=== PATIENT | male | born 1985 | race Caucasian/White ===

== ENCOUNTER → 2021-11-10 10:39 | Outpatient (CLI) | payer OTHER, SELFPAY ==
[2021-11-10 20:34] LABS: Add Manual Diff / Slide Review NO; Basophils Absolute Auto 0 /uL (0-100); Eosinophils Absolute Auto 100 /uL (0-450); Eosinophils Percent Auto 3.3 % (2-4); Hematocrit 40.3 % (41-53); Hemoglobin 13.6 g/dL (13.5-17.5); Lymphocytes Absolute Auto 1800 /uL (1100-4500); Lymphocytes Percent Auto 40.2 % (25-40); Mean Corpuscular HGB Conc 33.6 % (30-36); Mean Corpuscular Volume 92.2 fL (80-100); Monocytes Absolute Auto 300 /uL (0-900); Monocytes Percent Auto 7.9 % (3-14); Neutrophils Absolute Auto 2100 /uL (1500-7000); Neutrophils Percent Auto 47.6 % (50-75); Platelet Count 245 X10^3/uL (150-400); Red Blood Cell Count 4.37 X10^6/uL (4.5-5.9); Red Cell Distribution Width 13.8 % (11.6-14.8); White Blood Cell Count 4.4 X10^3/uL (4.5-11.0)
[2021-11-10 20:50] LABS: Alanine Aminotransferase 26 IU/L (<50); Albumin Globulin Ratio 2.1 (1.0-2.8); Alkaline Phosphatase 39 U/L (38-126); Aspartate Aminotransferase 31 IU/L (17-59); BUN Creatinine Ratio 16.7 (6-22); Blood Urea Nitrogen 11 mg/dL (9-20); Calcium 9.4 mg/dL (8.4-10.2); Carbon Dioxide 28 mmol/L (22-32); Chloride 101 mmol/L (98-107); Cholesterol 167 mg/dL (140-199); Estimated Glomerular Filt Rate > 60 mL/min (>60); Globulin 2.4 g/dL (1.7-4.1); Glucose 90 mg/dL (70-100); HDL Cholesterol 77 mg/dL (40-60); HEMOLYSIS < 15 (0-50); LDL Cholesterol Calculated 84 mg/dL (<100); Sodium 140 mmol/L (137-145); Total Protein 7.4 g/dL (6.3-8.2); Triglycerides 29 mg/dL (35-150)
[2021-11-12 09:57] LABS: Interpretation Negative (Negative)
== END ==
PROVIDERS: PCP Physician Assistant; Visit Provider Physician Assistant
DX: N46.9 Male infertility, unspecified (principal); R10.9 Unspecified abdominal pain
CPT/HCPCS: 80053; 80061; 83013; 85025

== ENCOUNTER → 2022-02-12 07:01 | Outpatient (CLI) | payer OTHER, SELFPAY ==
[2022-02-12 19:05] LABS: COVID19 - ORCAS (NP or Nasal) Negative (Negative)
== END ==
PROVIDERS: PCP Physician Assistant; Visit Provider Family Medicine
DX: Z20.822 Contact with and (suspected) exposure to COVID-19 (principal); Z01.812 Encounter for preprocedural laboratory examination
CPT/HCPCS: U0003

== ENCOUNTER 2022-02-15 11:24 | Day surgery (SDC) | payer OTHER, SELFPAY ==
--- NOTE | 2022-02-15 | PATH_ITS ---
[facility] Accession Number: [id number] . 01 Material submitted: . PART A: colon - RIGHT COLON BIOPSIES PART B: colon - LEFT COLON BIOPSIES . 01 Diagnosis: A-B. Right Colon, Left Colon, Biopsies: Colonic mucosa with no diagnostic abnormality. Negative for active, chronic, and microscopic colitis. Negative for dysplasia and malignancy. . MRV 02/18/2022 1107 Local . 01 Electronically signed: . Casie Ortiz MD, Pathologist NPI- [id number] . 01 Gross description: . Part A: RIGHT COLON BIOPSIES: Received in formalin are multiple fragment(s) of fernandes, soft tissue measuring 0.8 x 0.5 x 0.1 cm in aggregate submitted entirely in 1 cassette(s) Part B: LEFT COLON BIOPSIES: Received in formalin are multiple fragment(s) of fernandes, soft tissue measuring 1.2 x 0.3 x 0.1 cm in aggregate submitted entirely in 1 cassette(s) /CPE 02/17/2022 1025 Local . 01 Pathologist provided ICD-10: R19.4 . 01 CPT . 075233, 173082 Specimen Comment: A courtesy copy of this report has been sent to [phone] Performed at: [address] [facility] [address] [place] [address] [address], [place], [place] [id number] MD Alphonso Vargas MD Phone: [phone]
[2022-02-15 11:49] VITALS: BMI 20.7
[2022-02-15] MEDS: LACTATED RINGERS 1,000 ML 84 ML IV (11:59)
[2022-02-15 12:02] VITALS: BP 136/83; PULSE 62; RESP 18; TEMP 36.5; O2SAT 97
--- NOTE | 2022-02-15 12:15 | P.HP_ITS ---
History of Present Illness History of Present Illness Date Patient Seen: 02/15/22 Time Patient Seen: 12:16 Chief complaint: Colonoscopy Narrative: Patient is a pleasant 36-year-old male who presented for colonoscopy. He was last evaluated on 12/22/2021. He an episode where he was hospitalized in July of 2021 for nausea, vomiting, and diarrhea. He did have a CT scan at that time which was abnormal. This did show colitis. Per reports he also had and decreas ed fecal calprotectin, though we do not have that available for review. His dad had a history of colitis. He has not had previous colonoscopy. His symptoms of nausea vomiting diarrhea have resolved. Patient History Family & Social History Social History: household members spouse Tobacco & Substance use: Smoking Status Former smoker alcohol intake current alcohol intake frequency 0-2 drinks per day Substance Use Type does not use Meds Home Medications and Allergies Home Medications Medication Instructions Recorded Confirmed Type Sheridan Aid Supplement 1 tab PO DAILY 02/15/22 02/15/22 History levocetirizine 5 mg tablet 5 mg PO DAILY 02/15/22 02/15/22 History multivitamin 1 tab PO DAILY 02/15/22 02/15/22 History omega 4-xzx-bcs-fish oil 300 1 cap PO DAILY 02/15/22 02/15/22 History mg-1,000 mg capsule (Fish Oil) Allergies Allergy/AdvReac Type Severity Reaction Status Date / Time No Known Drug Allergies Allergy Verified 02/15/22 11:45 Review of Systems Review of Systems ROS: Yes All systems reviewed with the patient and are negative except as otherwise documented Exam Vital Signs (past 8 hours): - 02/15/22 12:02 Temperature 97.7 F Pulse Rate 62 Respiratory Rate 18 Blood Pressure 136/83 Pulse Oximetry 97 Oxygen Delivery Method Room Air Oxygen Delivery Method Room Air Const General: cooperative, healthy appearing, comfortable, well developed and No acute distress HENMT Head: atraumatic Resp Effort & Inspection: normal respiratory effort, able to speak in complete sentences and no audible wheezes Auscultation: clear to auscultation bilaterally Cardio Rate: regular rate Rhythm: regular rhythm GI Palpation: soft Assessment & Plan Assessment & Plan narrative: 1. Abnormal CT scan 2. Nausea, vomiting, diarrhea Colonoscopy today, further recommendations to follow Time Spent With Patient Critical Care time: I spent a total of [] minutes of critical care time on this patient's care today; this time is exclusive of procedural time.
--- NOTE | 2022-02-15 12:57 | PM.OP.COLON ---
Operative Date/Time/Diagnoses Date of procedure: 02/15/22 Time of procedure: 12:40 Procedure Notes Procedure in detail: Surgeon: Abril Stoner DO Procedure: Colonoscopy with biopsy Preoperative diagnosis: 1. Abnormal CT scan - colitis 2. Diarrhea Postoperative diagnosis: 1. Normal-appearing colonoscopy to the terminal ileum left and right were obtained 2. Grade 1 internal hemorrhoids Medications: Monitored anesthesia care Preanesthesia Assessment An H and P was performed/updated and the Px?s ASA class is 1. The procedure was discussed in detail with the patient. The potential risks and complications including infection, bleeding, missed lesions, perforation, need for surgery in case of perforation, prolonged hospital stay, and were explained. A brief question and answer period was allotted and once all questions were answered, informed consent was obtained. The patient was brought back to the procedure room and placed on standard monitoring. The patient?s vital signs were monitored continuously throughout the entire procedure. Prior to starting, a timeout was performed to confirm the patient?s identity, allergies, medications, and procedure. Procedure in detail The patient was placed in left lateral decubitus position and once adequate sedation was obtained a PHOENIX was performed. The digital rectal examination did not reveal any palpable lesions. The tip of the colonoscope was placed in the anal canal and advanced without difficulty all the way to the cecum which was identified by the appendiceal orifice and the ileocecal valve. Terminal ileum intubation was achieved. TI was unremarkable colon mucosa appeared within normal limits. Biopsies were taken from the left and right colon to rule out microscopic colitis versus underlying quiescent colitis. Grade 1 internal hemorrhoids were noted on retroflexion. Careful examination of all márquez of the colon was performed with irrigation of any residual stool. The patient tolerated the procedure well and will be brought back to the recovery area to be discharged once criteria are met. The prep was judged to be good/excellent and adequate to identify polyps less than 5 mm. The withdrawal time was 10min. Complications There were no complications and estimated blood loss was minimal. Recommendations: Resume previous diet Continue outPx medications Follow up pathology results Repeat colonoscopy for screening at age 46 Office follow up if persistent symptoms An emergency contact number was given to the patient for any complications related to the procedure
[2022-02-15 13:01] VITALS: BP 101/65; PULSE 61; RESP 18; TEMP 36.4; O2SAT 97
[2022-02-15 13:06] VITALS: BP 113/76; PULSE 58; RESP 12; O2SAT 100
[2022-02-15 13:11] VITALS: BP 121/83; PULSE 59; RESP 15; TEMP 36.6; O2SAT 100
[2022-02-15 13:28] VITALS: BP 122/72; PULSE 64; RESP 12; TEMP 36.8; O2SAT 98
== END 2022-02-15 13:32 | disposition home or self-care (01) ==
PROVIDERS: PCP Physician Assistant; Referring Provider Student in an Organized Health Care Education/Training Program; Visit Provider Student in an Organized Health Care Education/Training Program
PROC: 0DJD8ZZ Inspection of Lower Intestinal Tract, Via Natural or Artificial Opening Endoscopic (ICD-10-PCS; CPT 45378; principal; 2022-02-15 13:00)
DX: R19.7 Diarrhea, unspecified (principal); R93.3 Abnormal findings on diagnostic imaging of other parts of digestive tract; K64.0 First degree hemorrhoids
CPT/HCPCS: 45380; J2704

== ENCOUNTER → 2023-03-31 13:03 | Outpatient (CLI) | payer OTHER, SELFPAY ==
[2023-03-31 19:03] LABS: Add Manual Diff / Slide Review NO; Basophils Absolute Auto 0 /uL (0-100); Basophils Percent Auto 0.5 % (0-2); Eosinophils Absolute Auto 0 /uL (0-450); Eosinophils Percent Auto 0.7 % (2-4); Hematocrit 39.1 % (41-53); Hemoglobin 13.2 g/dL (13.5-17.5); Lymphocytes Absolute Auto 1200 /uL (1100-4500); Lymphocytes Percent Auto 20.5 % (25-40); Mean Corpuscular HGB Conc 33.7 % (30-36); Mean Corpuscular Hemoglobin 31.2 PG (26-34); Mean Corpuscular Volume 92.6 fL (80-100); Monocytes Absolute Auto 300 /uL (0-900); Monocytes Percent Auto 5.1 % (3-14); Neutrophils Absolute Auto 4400 /uL (1500-7000); Neutrophils Percent Auto 73.2 % (50-75); Platelet Count 233 X10^3/uL (150-400); Red Blood Cell Count 4.23 X10^6/uL (4.5-5.9); Red Cell Distribution Width 13.7 % (11.6-14.8); White Blood Cell Count 6.1 X10^3/uL (4.5-11.0)
== END ==
PROVIDERS: PCP Physician Assistant; Visit Provider Physician Assistant
DX: R79.9 Abnormal finding of blood chemistry, unspecified (principal)
CPT/HCPCS: 85025

== ENCOUNTER → 2023-04-21 13:25 | Outpatient (CLI) | payer OTHER, SELFPAY ==
[2023-04-26 14:07] LABS: Fecal Immunochemical Test Negative (Negative)
== END ==
PROVIDERS: PCP Physician Assistant; Visit Provider Physician Assistant
DX: D64.9 Anemia, unspecified (principal)
CPT/HCPCS: 82274